=== PATIENT | female | born 1985 | race Caucasian/White ===

== ENCOUNTER → 2025-06-07 06:19 | Emergency (ER) | payer OTHER, SELFPAY ==
[2025-06-07 06:24] VITALS: BP 106/60
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
[2025-06-07 07:23] VITALS: BMI 27.9
[2025-06-07 07:55] LABS: HCG, Serum Qualitative Screen Negative
[2025-06-07 08:02] LABS: ALT (SGPT) 19 U/L (0-35); AST (SGOT) 20 U/L (14-36); Albumin 4.0 g/dl (3.5-5.0); Alkaline Phosphatase 54 U/L (38-126); Blood Urea Nitrogen 11 mg/dl (7-17); Calcium 9.1 mg/dl (8.4-10.2); Carbon Dioxide 29 mmol/L (22-30); Chloride 104 mmol/L (98-107); Estimated Creatinine Clearance 83 ml/min; Glucose 92 mg/dl (70-99); Potassium 3.1 mmol/L (3.5-5.1); Sodium 138 mmol/L (135-145); Total Protein 6.5 g/dl (6.3-8.2); eGFR > 60.00
[2025-06-07 08:13] LABS: Hematocrit 36.6 % (37.0-47.0); Hemoglobin 13.2 g/dL (12.0-16.0); Mean Corp Hgb Conc. 36.1 g/dL (33.0-37.0); Mean Corpuscular Volume 86.9 fL (81.0-99.0); Nucleated Red Blood Cells % 0 %; Platelet Count 355 10^3/uL (130-400); Red Cell Dist. Width 11.6 % (11.5-14.5)
[2025-06-07 09:16] LABS: Urine Character Clear (Clear)
[2025-06-07 09:22] VITALS: BP 101/70; BP 104/68; BP 104/76; PULSE 100; PULSE 66; PULSE 68
[2025-06-07] MEDS: KCL 40 MEQ PO (09:24)
[2025-06-07 09:28] LABS: Troponin I < 0.012 ng/ml
[2025-06-07 10:33] LABS: Urine Red Blood Cell 0-2 /HPF (0-2); Urine Squamous Cell >30 /LPF (Few)
== END | disposition home or self-care (01) ==
LOC: EMR 06:19
PROVIDERS: Registered Nurse; EMERGENCY PHYSICIAN Student in an Organized Health Care Education/Training Program
DX: R55 Syncope and collapse (principal); E87.6 Hypokalemia; Z87.59 Personal history of other complications of pregnancy, childbirth and the puerperium
CPT/HCPCS: 99284; 70450; 80053; 81003; 81015; 84443; 84484; 84703; 85025; 87086; 93005